=== PATIENT | male | born 1960 | race Caucasian/White ===

== ENCOUNTER → 2016-10-15 | Day surgery (SDC) | payer OTHER ==
[~2016-10-15] MED LIST: Buffered Lidocaine 1% SYR 3ML* 3 ML/SYR SYRINGE INTRADERM ONE; Buffered Lidocaine 1% SYR 3ML* 3 ML/SYR SYRINGE ONE; Bupivacaine 0.25% SDV* 30 ML ONE; Dexamethasone IV* 4 MG/ML 1 ML (4 MG) ONE; Famotidine IV* 10 MG/ML 2 ML (20 mg) IV ONE; Famotidine IV* 10 MG/ML 2 ML (20 mg) ONE; KETAMINE HCL* 50 MG/ML 10 ML VIAL ONE; Ketorolac INJ* 30 MG/ML 1 ML VIAL IV PRN; Ketorolac INJ* 30 MG/ML 1 ML VIAL ONE; Labetalol IV* 5 MG/ML 20 ML VIAL ONE; Lidocaine 2% PF * 5 ML VIAL ONE; Midazolam* 1 MG/ML 5 ML VIAL (5 MG) ONE; Morphine INJ* 2 MG/ML 1 ML CARPUJECT IV PRN; Ondansetron INJ* 2 MG/ML VIAL ONE; PROCHLORPERAZINE INJ 5 MG/ML 2 ML VIAL IV PRN; Propofol* 10 MG/ML 20 ML BTL IV PUSH ONE; ceFAZolin 2 GM PREMIX (*) 2 GM/50 ML BAG IVPB ONE; fentaNYL* 50 MCG/ML 2 ML VIAL (100 MCG VIAL) IV PRN; fentaNYL* 50 MCG/ML 2 ML VIAL (100 MCG VIAL) ONE; hydrALAZINE IV* 20 MG/ML VIAL ONE; oxyCODONE/Acetamin 5/325 MG* TAB PO PRN
[2016-10-15 12:34] VITALS: BP 123/73
--- NOTE | 2016-10-16 03:49 | OP ---
DATE OF OPERATION: 10/15/16 - LOCATED WITHIN [facility] DATE OF : 60 SURGEON: Ellie Singh MD CDC ASSOCIATE: TITO Morillo. Doctor Osteopathic was needed for the entirety of the case to help with positioning, retraction, placement of anchors and closure was utilized for all portions of the case. ANESTHESIOLOGIST: Dr. Farfan. ANESTHESIA: General with interscalene block. PREOPERATIVE DIAGNOSIS: Left shoulder high grade partial thickness tear of the supraspinatus and partial tear of the subscapularis with bicipital tendonitis. POSTOPERATIVE DIAGNOSIS: Left shoulder high grade partial thickness tear of the supraspinatus and partial tear of the subscapularis with bicipital tendonitis. OPERATIVE PROCEDURE: Left shoulder arthroscopy with, 1. Glenohumeral debridement including debridement of the subscapularis. 2. Rotator cuff repair. 3. Subacromial decompression with acromioplasty. 4. Subpectoral biceps tenodesis. COMPLICATIONS: None. ESTIMATED BLOOD LOSS: Minimal. INDICATIONS: Andrey Chavarria is a 56-year-old male who has had several months ' history of worsening shoulder pain with refractory conservative measures including physical therapy. He had an MRI finding that was consistent with a high-grade partial thickness tear of the supraspinatus tendon and possible partial tearing of the subscapularis with bicipital tendinitis. Risks and benefits of surgery were discussed and included but are not limited to bleeding , infection, damage to nerves, vessels, surrounding structures, wound nonhealing , persistent pain, need for further surgery, incomplete relief of symptoms, failure to repair the scar, risks of anesthesia and DVT. He has elected to proceed with surgery. DESCRIPTION OF PROCEDURE: The patient was greeted in the preoperative area by the attending surgeon and the correct extremity was marked and consent was confirmed. The patient then underwent interscalene nerve block by the anesthesiologist, which he tolerated without difficulty. The patient was then brought back to the operating suite, where he was placed in supine position on the operating table. He then underwent general anesthesia under endotracheal intubation after which the left shoulder was examined and found to have full range of motion. The patient was then placed on the right lateral decubitus position with an axillary roll. All bony prominences were padded. He was supported with a peg board. The left arm was draped unsterile with 10 pounds of traction. The left shoulder was prepped and draped in usual sterile fashion with chlorhexidine soap, scrub, and a final prep of ChloraPrep. After appropriate surgical pause indicating site, side, procedure, and administration of antibiotics, a standard postero-lateral incision was made with a 11 blade. The scope was introduced into the joint. The joint was examined. There was abundant hyperemia and inflammation of the joint. Along the interval as well as in the bicipital groove, there was a less than 10% area of unstable tearing of the subscapularis with an unstable flap. The glenoid had grade 0 to 1 changes. The humeral head had grade 0 to 1 changes. The inferior recess was intact. Anterior and posterior labrum were intact with mild fraying. The superior labrum was found to have a high grade tear. The under surface of the rotator cuff had high grade partial thickness tear encompassing at least 40% of the footprint. The anterior portal was then made in an outside- in fashion. The shaver was used to debride the anterior, posterior and superior labrum. The biceps was taken through range of motion. The groove was inflamed as well as the posterior aspect of the tendon. Therefore, a tenotomy was done. The under surface of the subscapularis was also debrided back to a stable layer using the shaver. Again, this was probably about 5%. A decision was made to not tear it in. It was felt that most of the inflammation and the tearing of the subscapularis was due to the biceps itself. The under surface of the supraspinatus was also debrided back. Once the debridement was complete , all fluid and debris was removed from the joint. The scope was repositioned to subacromial spacer. There was abundant bursa that was present. Lateral portal was then made in an outside-in fashion and the shaver as well as the electrocautery device were used to do the bursectomy. This demonstrated a large under surface spur at the acromion, which was skeletonized using the electrocautery device and then an acromioplasty was done using a 4-0 oval rafa. All loose debris and bone were removed from the joint and attention was directed to the cuff. The cuff appeared to be intact on the bursal side but this was probed and found to be quite thin. Decision was made to complete the tear. The tear was completed with the 11-blade. The rotator cuff was debrided to a good healing edge using the shaver. The electrocautery and the shaver were used to prepare the greater tuberosity all the way to the level of the joint line. Once this was complete, the rasp was then used to rasp the bone and allow for aggravation to allow for a good healing bed. Two 4.75 Healicoil anchors were placed along the medial row anteriorly, posteriorly about the tear. The sutures were passed in a horizontal mattress configuration and tied down using arthroscopic knot tying. One strand from each of the four knotted sutures were then passed through a 5-5 through the MULTIFIX-S and secured for a lateral rope fixation. Final images were obtained and all loose debris was removed from the joint. The bed was slightly air planed to the left side. The anterior aspect of the shoulder was re-prepped with ChloraPrep. A 15-blade was used to make an incision in line with the biceps to come through the inferior two-thirds of the pectoralis tendon. The soft tissues were carefully dissected using Metzenbaum scissors and pickups. Electrocautery was used to maintain hemostasis. Once the pectoralis head was identified, the remainder of the dissection was done bluntly. The pectoralis was then retracted superiorly. The bicipital groove was identified. The biceps was then removed from the groove. There was abundant erythema and inflammation of the biceps. The groove was then prepared using electro-cautery device, the ball rasp and the osteotome to stimulate a bony healing response. The Q-Fix guide was then used and drilled through unicortically. A Q-Fix anchor was deployed with good purchase. The sutures were then passed through the tendon approximately 1 cm proximal to the musculotendinous junction. These were passed in a Daniel-Garland type configuration. The end of the biceps was then debrided back in the biceps and was shoveled back into the groove. This was then tied down and then the wounds were copiously irrigated with sterile saline. The incision was closed in layers with 2- 0 Vicryl and 3-0 Monocryl. The probe was closed with 3-0 nylon. Sterile dressings were applied. The anterior wound was injected with 20 cc of 0.25% Marcaine plain. A Cryo/Cuff as well as an UltraSling was then applied. The patient was then awoken from anesthesia and transferred to the PACU in stable condition. POSTOPERATIVE PLAN: He will be nonweightbearing for 6 weeks. He will be in a sling for 6 weeks. He can come out to work on elbow, hand and wrist range of motion as well as pendulums. He will be discharged on pain medications as well as antibiotics. DVT prophylaxis was considered, but deferred due to no previous personal or family history. I will see the patient back in 10 to 14 days. [id number]/[facility] #: [id number] [facility] CENTERBoyd
== END | disposition home or self-care (01) ==
LOC: OREAST 07:30
PROVIDERS: ATTEND Orthopaedic Surgery
DX: M75.102 Unspecified rotator cuff tear or rupture of left shoulder, not specified as traumatic (principal); M75.22 Bicipital tendinitis, left shoulder
CPT/HCPCS: 88304; J0360; J0690; J1100; J1885; J2250; J2405; J2704; J3010

== ENCOUNTER 2016-12-27 17:53 | Emergency (ER) | payer OTHER ==
[2016-12-27 18:25] VITALS: BP 111/61
[2016-12-27] MEDS ORDERED: Aspirin Low Dose CHEW TAB* 81 MG PO ONE (18:30)
--- NOTE | 2017-01-12 11:22 | UC ---
Quynh Yusuf Matthew, scribed for StaciaTaylor DO on 12/27/16 at 1824 . Palpitation/Dysrhythmia HP - HPI Summary HPI Summary: A 56 y/o male presents to [facility] with palpitations since 16:30. The palpitations are described as pounding. Associated symptoms include dizziness and lightheadedness. The patient denies weakness, numbness/tingling, diaphoresis, pain in the neck, jaw, arm, or chest, nausea, vomiting, fever, sore throat, chills, and urinary symptoms. The patient had similar symptoms 3 weeks ago and followed-up with his PCP. He had an echocardiogram, but has not received the results. The symptoms started as the patient was walking today and became SOB while walking up a hill, which was unusual for the patient. The previous episode occurred while the patient was napping 3 weeks ago. He then walked 5 miles at that time and while walking up the hill he became SOB, which was again unusual for the patient. The patient also had recent left shoulder surgery. - History of Current Complaint Stated Complaint: RACING HEART,DIZZY Hx Obtained From: Patient Onset/Duration: Lasting Hours, Still Present Timing: Constant Severity Initially: Moderate Severity Currently: Moderate Pain Intensity: 0 Pain Scale Used: 0-10 Numeric Character: Pounding Aggravating Factor(s): Exertion Alleviating Factor(s): Rest Associated Signs & Symptoms: Positive: Lightheadedness, Dizzy, Shortness of Breath - since resolved. Negative: Chest Pain, Diaphoresis, Nausea, Vomiting - Risk Factors Cardiac: Negative - Allergy/Home Medications Allergies/Adverse Reactions: Allergies Allergy/AdvReac Type Severity Reaction Status Date / Time No Known Allergies Allergy Verified 12/27/16 18:25 PMH/Surg Hx/FS Hx/Imm Hx Previously Healthy: Yes Endocrine History Of: Denies: Diabetes, Thyroid Disease Cardiovascular History Of: Denies: Cardiac Disorders, Hypertension, Pacemaker/ICD Respiratory History Of: Denies: COPD, Asthma GI/ History Of: Denies: Ulcer, Renal Disease Psychological History Of: Reports: Anxiety, Depression - Surgical History Surgical History: Yes Surgery Procedure, Year, and Place: 1961 BILATERAL INGUINAL HERNIA REPAIR AT AGE 2 1/2,. 2001 VASECTOMY, OFFICE. 2010 PERIDONTAL SURGERY WITH LOCAL - OFFICE. 2017 shoulder surgery - Family History Known Family History: Positive: Unknown - The patient is adopted - Social History Lives: With Family Alcohol Use: Daily Alcohol Amount: 2-3 DRINKS Substance Use Type: Marijuana Substance Use Comment - Amount & Last Used: SM AMOUNT DAILY Smoking Status (MU): Former Smoker Type: Cigarettes Amount Used/How Often: 1 PPD FOR 16 YEARS Length of Time of Smoking/Using Tobacco: 16 Have You Smoked in the Last Year: No When Did the Patient Quit Smoking/Using Tobacco: 1989 - Immunization History Most Recent Tetanus Shot: 04/22/13 Review of Systems Constitutional: Negative Skin: Negative Eyes: Negative ENT: Negative Respiratory: Negative Cardiovascular: Palpitations Gastrointestinal: Negative Genitourinary: Negative Motor: Negative Neurovascular: Negative Musculoskeletal: Negative Neurological: Other - Lightheadedness, Dizziness Psychological: Negative All Other Systems Reviewed And Are Negative: Yes Physical Exam Triage Information Reviewed: Yes Appearance: Well-Appearing, No Pain Distress, Well-Nourished Vital Signs: Temp Pulse Resp BP Pulse Ox 156 20 111/61 100 12/27/16 18:04 12/27/16 18:04 12/27/16 18:04 12/27/16 18:04 Vital Signs Reviewed: Yes Eyes: Positive: Conjunctiva Clear. Negative: Discharge ENT: Positive: Hearing grossly normal. Negative: Muffled/hoarse voice Neck: Positive: Supple, Nontender Respiratory: Positive: Lungs clear, Normal breath sounds, No respiratory distress, No accessory muscle use Cardiovascular: Positive: No Murmur, Tachycardia Musculoskeletal Exam: Normal Musculoskeletal: Positive: Strength Intact Neurological Exam: Other - A&Ox3, CN II-XII INTACT, SENSORY MOTOR INTACT, REFLEXES INTACT, NO CEREBELLAR SIGNS; The right side of the patients mouth appeared as though it was drooping; however, when he sat up the droop was no longer evident. Neurological: Positive: Alert, Muscle Tone Normal Psychological: Positive: Age Appropriate Behavior Skin Exam: Normal, Other - dry, normal color Diagnostics - EKG Cardiac Rate: Tachycardia - 159 bpm Cardiac Rhythm: Other Rhythm: New - Atrial Flutter; No ST changes; preformed at 18:01 Palpitations Course/Dx - Differential Dx/Diagnosis Provider Diagnoses: dizzy, atrial flutter, sob Discharge - Discharge Plan Condition: Stable Disposition: [facility] Referrals: Ruth Brown MD [Primary Care Provider] - The documentation as recorded by the scribeQuynh Matthew accurately reflects the service I personally performed and the decisions made by me, Taylor Palomo DO.
== END 2016-12-27 18:45 | disposition short-term general hospital (02) ==
LOC: UCEAST 17:53
DX: R42 Dizziness and giddiness (principal); I48.92 Unspecified atrial flutter; R06.02 Shortness of breath; F41.8 Other specified anxiety disorders; Z87.891 Personal history of nicotine dependence
CPT/HCPCS: 93005; 99213; A9270-GY; G0463

== ENCOUNTER 2016-12-27 19:15 | Emergency (ER) | payer OTHER ==
[2016-12-27 19:46] LABS: Hematocrit 45 % (42-52); Hemoglobin 15.1 g/dl (14.0-18.0); Mean Corpuscular HGB Conc 34 g/dl (31-36); Mean Corpuscular Hemoglobin 30 pg (27-31); Mean Corpuscular Volume 89 fL (80-94); Mean Platelet Volume 9 um3 (7.4-10.4); Red Blood Count 4.99 10^6/ul (4.0-5.4); Red Cell Distribution Width 13 % (10.5-15); White Blood Count 8.5 10^3/ul (3.5-10.8)
--- NOTE | 2016-12-27 19:59 | ED ---
HPI Cardiac - HPI Summary HPI Summary: The patient is a 56 male presenting to ED from [facility] for complaint of "pounding fast heart, shortness of breath walking uphill, and lightheadedness" which began suddenly at 430 PM today. Denies fever, chills, diaphoresis, nasal symptoms, sore throat, jaw pain, cough, shortness of breath at rest, hemoptysis , syncope, abdominal pain, nausea, vomiting, peripheral edema, unilateral calf pain or swelling. Similar episode 2 weeks ago in bed at rest that lasted for 11 hours then spontaneously resolved. Underwent 2D Echo 1 week ago reportedly unremarkable. History of gingitivitis but no additional PMH. Underwent arthroscopic left shoulder surgery October 15, 2016 with splint x6 weeks with Dr. Singh. FH unknown as adopted. SH: Former smoker. Denies cocaine or IVDU. - History of Current Complaint Stated Complaint: XFER FROM [facility] Time Seen by Provider: 12/27/16 19:19 Pain Intensity: 0 - Allergy/Home Medications Allergies/Adverse Reactions: Allergies Allergy/AdvReac Type Severity Reaction Status Date / Time No Known Allergies Allergy Verified 12/27/16 18:25 PMH/Surg Hx/FS Hx/Imm Hx Endocrine/Hematology History: Denies: Hx Diabetes, Hx Thyroid Disease Cardiovascular History: Denies: Hx Hypertension, Hx Pacemaker/ICD Respiratory History: Denies: Hx Asthma, Hx Chronic Obstructive Pulmonary Disease (COPD) GI History: Denies: Hx Ulcer History: Denies: Hx Renal Disease Musculoskeletal History: Reports: Hx Arthritis, Hx Tendonitis - RIGHT ARM, ELBOW Sensory History: Reports: Hx Contacts or Glasses - GLASSES Denies: Hx Hearing Aid Opthamlomology History: Reports: Hx Contacts or Glasses - GLASSES Neurological History: Reports: Other Neuro Impairments/Disorders - N/T HISTORY RIGHT NECK TO HAND - NOT ACTIVE CURRENTLY Psychiatric History: Reports: Hx Anxiety, Hx Depression Denies: Hx Panic Disorder - Surgical History Surgery Procedure, Year, and Place: 1961 BILATERAL INGUINAL HERNIA REPAIR AT AGE 2 1/,. 2001 VASECTOMY, OFFICE. 2010 PERIDONTAL SURGERY WITH LOCAL - OFFICE Hx Anesthesia Reactions: No Infectious Disease History: No Infectious Disease History: Denies: Hx Clostridium Difficile, Hx Hepatitis, Hx Human Immunodeficiency Virus (HIV), Hx of Known/Suspected MRSA, Hx Shingles, Hx Tuberculosis, Hx Known/ Suspected VRE, Hx Known/Suspected VRSA, History Other Infectious Disease, Traveled Outside the [place] in Last 30 Days - Social History Alcohol Use: Daily Alcohol Amount: 2-3 DRINKS Substance Use Type: Reports: Marijuana Substance Use Comment - Amount & Last Used: SM AMOUNT DAILY Smoking Status (MU): Former Smoker Type: Cigarettes Amount Used/How Often: 1 PPD FOR 16 YEARS Length of Time of Smoking/Using Tobacco: 16 Have You Smoked in the Last Year: No Review of Systems Constitutional: Negative Negative: Fever, Chills, Skin Diaphoresis ENT: Negative Positive: Other - no jaw pain Positive: Palpitations, Other - lightheaded. Negative: Chest Pain Positive: Other - GIBBONS. Negative: Cough Gastrointestinal: Negative Negative: Abdominal Pain, Vomiting, Nausea Musculoskeletal: Negative Positive: Other - no neck or back pain Skin: Negative Neurological: Negative Psychological: Normal All Other Systems Reviewed And Are Negative: Yes Physical Exam Triage Information Reviewed: Yes Vital Signs On Initial Exam: Initial Vitals Temp Pulse Resp BP Pulse Ox 97.8 F 69 18 114/86 100 12/27/16 19:20 12/27/16 19:20 12/27/16 19:20 12/27/16 19:20 12/27/16 19:20 Vital Signs Reviewed: Yes Appearance: Positive: Well-Appearing, No Pain Distress, Well-Nourished Skin: Positive: Warm, Skin Color Reflects Adequate Perfusion, Dry Head/Face: Positive: Normal Head/Face Inspection Eyes: Positive: Normal - Anicteric ENT: Positive: Hearing grossly normal, Other - oral mucosa moist Neck: Positive: Supple, Nontender, No Lymphadenopathy Respiratory/Lung Sounds: Positive: Clear to Auscultation, Breath Sounds Present. Negative: Decreased Breath Sounds, Rales, Rhonchi, Wheezes, Unable to speak in full sentences Cardiovascular: Positive: Normal - radial pulse 2+, RRR, S1, S2. Negative: IRR , Murmur, Rub, Tachycardia, Leg Edema Left, Leg Edema Right, S3 Abdomen Description: Positive: Nontender, No Organomegaly, Soft. Negative: Distended, Guarding, Hepatomegaly, Peritoneal Signs, Splenomegaly Bowel Sounds: Positive: Present Musculoskeletal: Positive: Normal. Negative: Ceasar Sign Left, Ceasar Sign Right , Edema Left, Edema Right Neurological: Positive: Normal Psychiatric: Positive: Normal AVPU Assessment: Alert Diagnostics - Vital Signs Vital Signs Temp Pulse Resp BP Pulse Ox 12/27/16 19:20 97.8 F 69 18 114/86 100 - Laboratory Result Diagrams: 12/27/16 19:35 12/27/16 19:35 Lab Statement: Any lab studies that have been ordered have been reviewed, and results considered in the medical decision making process. Re-Evaluation - Re-Evaluation First Eval Re-Evaluation Time: 21:34 Change: Unchanged Comment: Patient condition remains unchanges currently asymptomatic with NSR on monitor. Stable for discharge. Disposition - Course Assessment/Plan: Patient presented for atrial tachycardia noted on EKG in prompt care which spontaneously broke prior to arrival in ED. EKG in ED demonstrated NSR without acute ischemia. Remained NSR which in ED with resolution of symptoms. Labs reviewed and grossly unremarkable including negative troponin and D-dimer. CXR reviewed by myself without evidence of acute cardiopulmonary disease. ChadsVasc Score 0. Advised to take Asa 81 mg daily. Advised to call PCP tomorrow or card cleaner to schedule outpatient continuous monitoring. - Diagnoses Provider Diagnoses: Atrial tachycardia, paroxysmal Discharge - Discharge Plan Condition: Stable Disposition: HOME Patient Education Materials: Atrial Tachycardia (ED) Referrals: Andrey Shipley MD [Medical Doctor] - (follow-up PRATIK) Ruth Brown MD [Primary Care Provider] - (call tmrw to schedule follow-up)
[2016-12-27 20:06] LABS: Albumin 4.3 g/dL (3.2-5.2); BUN/Creatinine Ratio 16.7 (8-20); Calcium 9.3 mg/dL (8.6-10.3); EGFR African American 112.3 (>60); EGFR Non-African American 87.3 (>60); Globulin 2.6 g/dL (2-4); Magnesium 2.3 mg/dL (1.9-2.7); Potassium 3.7 mmol/L (3.5-5.0); Total Bilirubin 0.7 mg/dL (0.2-1.0); Total Protein 6.9 g/dL (6.4-8.9)
[2016-12-27 20:40] LABS: TSH (Thyroid Stimulating Horm) 3.15 mcIU/mL (0.34-5.60)
[2016-12-27 22:13] VITALS: BP 136/98
--- NOTE | 2016-12-27 22:32 | RAD ---
Indication: Dizziness. Single frontal view of the chest performed at 1950 hours was reviewed. No prior study is available for comparison. No mediastinal shift is noted. Heart is of normal size and configuration. Lung paulino appear clear. IMPRESSION: NO ACTIVE CARDIOPULMONARY DISEASE IS NOTED.
== END 2016-12-27 22:16 | disposition home or self-care (01) ==
LOC: ED 19:15
DX: I47.1 Supraventricular tachycardia (principal); R06.02 Shortness of breath; R42 Dizziness and giddiness
CPT/HCPCS: 36415; 71010; 80053; 83605; 83735; 84443; 84484; 85025; 85379; 93005; 99282